=== PATIENT | female | born 1945 | race Caucasian/White ===

== ENCOUNTER 2017-08-11 12:08 | Emergency (ER) | payer OTHER ==
[~2017-08-11] VITALS: Ht 149.9 cm; Wt 59.0 kg
[2017-08-11 13:28] LABS: Basophils # (auto) 0 uL; Basophils % (auto) 0.5 % (0.0-2.0); Eosinophils # (auto) 0.1 uL; Eosinophils % (auto) 0.7 % (0.0-7.0); Hematocrit 38.5 % (36.0-46.0); Hemoglobin 12.5 g/dL (12.2-16.2); Lymphocytes # (auto) 0.8 uL; Mean Corpuscular Hemoglobin 29.8 pg (28.0-32.0); Mean Corpuscular Hgb Conc. 32.4 g/dL (32.0-36.0); Mean Corpuscular Volume 91.7 fL (80.0-100.0); Monocytes # (auto) 0.7 uL; Monocytes % (auto) 9.2 % (0.0-12.0); Neutrophils # (auto) 5.9 uL; Neutrophils % (auto) 78.6 % (37.0-80.0); Platelet Count (auto) 233 10^3/uL (140-450); Red Cell Distribution Width 13.5 % (11.8-14.3); White Blood Cell 7.5 10^3/uL (4.4-10.8)
[2017-08-11 13:41] LABS: Alanine Aminotransferase 18 U/L (13-56); Albumin 3.4 g/dL (3.4-5.0); Alkaline Phosphatase 90 U/L (45-117); Anion Gap 6 (5-15); Aspartate Aminotransferase 20 U/L (15-37); BUN/Creatinine Ratio 24.4; Bilirubin, Total 0.3 mg/dL (0.2-1.0); Blood Urea Nitrogen 11 mg/dL (7-18); Calcium 8.6 mg/dL (8.5-10.1); Carbon Dioxide 35 mmol/L (21-32); Chloride 96 mmol/L (98-107); GFR African American 178 mL/min; GFR Non-African American 147 mL/min; Glucose 107 mg/dL (74-106); Magnesium 2.4 mg/dL (1.6-2.6); Sodium 137 mmol/L (136-145); Total Protein 6.6 g/dL (6.4-8.2)
[2017-08-11 14:10] VITALS: BP 152/86
== END 2017-08-11 15:10 | disposition home or self-care (01) ==
LOC: ER 12:08
DX: S01.81XA Laceration without foreign body of other part of head, initial encounter (principal); S61.512A Laceration without foreign body of left wrist, initial encounter; W01.0XXA Fall on same level from slipping, tripping and stumbling without subsequent striking against object, initial encounter; Y93.89 Activity, other specified; Y92.89 Other specified places as the place of occurrence of the external cause; Y99.8 Other external cause status; J44.9 Chronic obstructive pulmonary disease, unspecified
CPT/HCPCS: 12052; 36415; 70450; 71045; 80053; 83735; 84484; 85025; 93005

== ENCOUNTER 2017-08-21 18:23 | Inpatient (IN) | payer OTHER ==
[~2017-08-21] VITALS: Ht 142.2 cm; Wt 33.8 kg
[2017-08-21] MEDS ORDERED: ALBUTEROL SULF 2.5 MG/0.5ML(0.5%) NEB SOLN HHN ONE (18:45)
[2017-08-21] MEDS ORDERED: methylPREDNISolone SOD SUCC 125 MG/2 ML VL IV ONE (18:45)
[2017-08-21] MEDS ORDERED: IPRATROPIUM BROM 0.5 MG/2.5ML INH SOL HHN ONE (18:45)
[2017-08-21] MEDS ORDERED: ONDANSETRON HCL 4 MG/2 ML VIAL IV ONE (19:00)
[2017-08-21] MEDS ORDERED: cefTRIAXone 1GM/10ml IVPUSH 10 ML IV ONE (19:00)
[2017-08-21 19:41] LABS: Basophils # (auto) 0 uL; Basophils % (auto) 0.1 % (0.0-2.0); Eosinophils # (auto) 0 uL; Hematocrit 43.1 % (36.0-46.0); Hemoglobin 13.9 g/dL (12.2-16.2); Lymphocytes # (auto) 0.5 uL; Lymphocytes % (auto) 7.8 % (10.0-50.0); Mean Corpuscular Hgb Conc. 32.4 g/dL (32.0-36.0); Mean Corpuscular Volume 92.7 fL (80.0-100.0); Monocytes # (auto) 0.7 uL; Monocytes % (auto) 12.1 % (0.0-12.0); Neutrophils # (auto) 4.6 uL; Platelet Count (auto) 298 10^3/uL (140-450); Red Blood Cells 4.65 10^6/uL (4.0-5.20); Red Cell Distribution Width 13.8 % (11.8-14.3); White Blood Cell 5.8 10^3/uL (4.4-10.8)
[2017-08-21 19:57] LABS: Lactic Acid w/Reflex 3.4 mmol/L (0.4-2.0)
[2017-08-21 20:08] LABS: Albumin 3.3 g/dL (3.4-5.0); BUN/Creatinine Ratio 50.5; Bilirubin, Total 0.8 mg/dL (0.2-1.0); Calcium 8.1 mg/dL (8.5-10.1); Magnesium 2.5 mg/dL (1.6-2.6); Potassium 4.3 mmol/L (3.5-5.1); Total Protein 6.1 g/dL (6.4-8.2)
[2017-08-21] MEDS ORDERED: PANTOPRAZOLE 40 MG/10 ML VIAL IV ONE (20:45)
[2017-08-21] MEDS ORDERED: SODIUM CHLORIDE 0.9% 1,000 ML IV ONE (20:45)
[2017-08-21] MEDS ORDERED: TEMAZEPAM 15 MG CAP PO PRN (20:45)
[2017-08-21] MEDS ORDERED: SODIUM CHLORIDE 0.9% 1,000 ML IV SCH (20:45)
[2017-08-21] MEDS ORDERED: HYDROcodone-ACET 5/325MG TAB PO PRN (20:45)
[2017-08-21] MEDS ORDERED: ACETAMINOPHEN 325 MG TAB PO PRN (20:45)
[2017-08-21] MEDS ORDERED: MORPHINE SULFATE 10 MG/ML INJ 1ML SDV IV PRN (20:45)
[2017-08-21] MEDS ORDERED: NITROGLYCERIN 0.4 MG SL TAB SL PRN (20:45)
[2017-08-21 21:00] LABS: Amylase 59 U/L (25-115); Lipase 39 U/L (73-393)
[2017-08-21] MEDS ORDERED: ENOXAPARIN SOD 40 MG/0.4 ML SYRINGE SC SCH (21:26)
[2017-08-21] MEDS ORDERED: LORazepam 2MG/ML-1ML VIAL IV ONE (22:15)
[2017-08-21] MEDS: ONDANSETRON HCL 4 MG/2 ML VIAL IV PRN (22:45)
[2017-08-21 23:16] VITALS: BP 84/61
[2017-08-22] VITALS (84 sets, daily range): BP systolic 56–152; BP diastolic 32–144
[2017-08-22] MEDS ORDERED: SUCCINYLCHOLINE CHLORIDE 20 MG/ML 10ML VIAL IV ONE ×2 (04:41→06:30)
[2017-08-22] MEDS ORDERED: ETOMIDATE (2MG/ML) 20ML VIAL IV ONE ×2 (04:44→06:30)
[2017-08-22] MEDS ORDERED: NOREPINEPHRINE 8 MG/250ML KIT 250 ML IV ONE ×2 (04:54→11:05)
[2017-08-22] MEDS ORDERED: DEXTROSE 50% SYRINGE 50 ML IV ONE ×2 (04:55→05:11)
[2017-08-22] MEDS ORDERED: MIDAZOLAM DRIP 50 mg/50mL 50 ML IV ONE ×2 (05:04→09:08)
[2017-08-22] MEDS ORDERED: DEXTROSE (50%) 50ML SYRG IV ONE ×3 (05:15→06:30)
[2017-08-22] MEDS ORDERED: MIDAZOLAM DRIP 50 mg/50mL 50 ML IV SCH (05:20)
[2017-08-22] MEDS ORDERED: NOREPINEPHRINE 8 MG/250ML KIT 250 ML IV SCH (05:25)
[2017-08-22] MEDS ORDERED: ACETAMINOPHEN 650 mg PER 20 mL UD GT PRN (05:30)
[2017-08-22] MEDS ORDERED: methylPREDNISolone SOD SUCC 125 MG/2 ML VL IV SCH (06:00)
[2017-08-22] MEDS ORDERED: SODIUM CHLORIDE 0.9% 250 ML IV ONE (06:45)
[2017-08-22] MEDS ORDERED: SODIUM CHLORIDE 0.9% 1,000 ML IV SCH (06:45)
[2017-08-22 08:49] LABS: Basophils # (auto) 0 uL; Basophils % (auto) 0.1 % (0.0-2.0); Eosinophils # (auto) 0 uL; Eosinophils % (auto) 0.1 % (0.0-7.0); Hematocrit 33.1 % (36.0-46.0); Hemoglobin 10.6 g/dL (12.2-16.2); Lymphocytes # (auto) 0.2 uL; Lymphocytes % (auto) 5.1 % (10.0-50.0); Mean Corpuscular Hemoglobin 30.7 pg (28.0-32.0); Mean Corpuscular Volume 95.9 fL (80.0-100.0); Monocytes # (auto) 0.6 uL; Monocytes % (auto) 11.5 % (0.0-12.0); Neutrophils % (auto) 83.2 % (37.0-80.0); Nucleated Red Blood Cells % 0.1 %; Platelet Count (auto) 184 10^3/uL (140-450); Red Blood Cells 3.45 10^6/uL (4.0-5.20); Red Cell Distribution Width 14.6 % (11.8-14.3); White Blood Cell 4.8 10^3/uL (4.4-10.8)
[2017-08-22] MEDS ORDERED: PHENYLEPHRINE IV 250 ML IV ONE ×2 (08:50→15:30)
[2017-08-22] MEDS: PHENYLEPHRINE INJ 20 MG in SODIUM CHL 0.9% 250 ML IV SCH ×3 (09:00→23:13)
[2017-08-22 09:21] LABS: Albumin 1.9 g/dL (3.4-5.0); BUN/Creatinine Ratio 35.9; Bilirubin, Total 0.3 mg/dL (0.2-1.0); Calcium 6.1 mg/dL (8.5-10.1)
[2017-08-22] MEDS: ALBUMIN 25% 100 ML IV SCH ×2 (10:30→12:23)
[2017-08-22] MEDS ORDERED: ENOXAPARIN SOD 100 MG/1 ML SYRINGE SC ONE (10:45)
[2017-08-22] MEDS: PANTOPRAZOLE 40 MG/10 ML VIAL IV SCH (11:19)
[2017-08-22] MEDS: cefTRIAXone 1GM/10ml IVPUSH 10 ML IV SCH (11:19)
[2017-08-22] MEDS: POTASSIUM CHL 10% (20 MEQ/15ML) 15ml ORAL SOLN GT SCH ×2 (11:24→12:00)
[2017-08-22] MEDS: SODIUM BICARBONATE 50ML VIAL 50 ML in D5W/SOD CHL 0.45%/KCL 20MEQ 1,000 ML IV SCH ×2 (13:02→19:15)
[2017-08-22] MEDS: POTASSIUM CHL 20MEQ/50ML 50 ML IV SCH ×2 (13:06→17:17)
[2017-08-22 13:43] LABS: Urine Bacteria NONE SEEN /hpf (None Seen); Urine Hyaline Cast FEW /lpf (0 - 2); Urine Mucus FEW (None Seen); Urine Specific Gravity 1.025 (1.001-1.035); Urine WBC 3 /hpf (0 - 5)
[2017-08-22 13:44] LABS: Urine Blood 1+ /uL (Negative)
[2017-08-22 14:22] LABS: Creatinine, Urine 76 mg/dL (30.0-125.0); Sodium Urine 25 mmol/L (40-220)
[2017-08-22 14:39] LABS: INR 1.6 (0.9-1.15); Partial Thromboplastin Time 66.6 sec (22.64-33.71); Prothrombin Time 17.5 sec (9.37-12.3)
[2017-08-22] MEDS: NOREPINEPHRINE 8 MG/250ML KIT 250 ML IV SCH ×2 (16:00→20:00)
[2017-08-22] MEDS: methylPREDNISolone SOD SUCC 40 MG/ML VL IV SCH ×2 (17:17→22:00)
[2017-08-22] MEDS ORDERED: LIDOCAINE 1% HCL (LOCAL ANESTH.) INJ 20ML MDV ID ONE (21:00)
[2017-08-22] MEDS: MIDAZOLAM DRIP 50 mg/50mL 50 ML IV SCH (22:00)
[2017-08-22] MEDS: SODIUM CHLOR 0.9% PF (SALINE LOCK) 10ML VIAL IV SCH (22:00)
[2017-08-23] VITALS (102 sets, daily range): BP systolic 80–133; BP diastolic 23–79
[2017-08-23] MEDS: MIDAZOLAM DRIP 50 mg/50mL 50 ML IV SCH (00:45)
[2017-08-23] MEDS: NOREPINEPHRINE 8 MG/250ML KIT 250 ML IV SCH ×3 (01:19→15:52)
[2017-08-23] MEDS: SODIUM BICARBONATE 50ML VIAL 50 ML in D5W/SOD CHL 0.45%/KCL 20MEQ 1,000 ML IV SCH ×3 (01:19→23:00)
[2017-08-23 04:20] LABS: Hematocrit 33.2 % (36.0-46.0); Hemoglobin 11.1 g/dL (12.2-16.2); Mean Corpuscular Hemoglobin 30.5 pg (28.0-32.0); Mean Corpuscular Hgb Conc. 33.3 g/dL (32.0-36.0); Mean Corpuscular Volume 91.7 fL (80.0-100.0); Platelet Count (auto) 146 10^3/uL (140-450); Red Blood Cells 3.62 10^6/uL (4.0-5.20); Red Cell Distribution Width 14.2 % (11.8-14.3); White Blood Cell 4.4 10^3/uL (4.4-10.8)
[2017-08-23 04:26] LABS: Basophils % (manual) 0 (0.0-2.0); Blast Cells 0; Eosinophils % (manual) 0 (0-7); Promyelocytes % 0; Reactive Lymphocytes 0
[2017-08-23 04:40] LABS: Lactic Acid w/Reflex 3.8 mmol/L (0.4-2.0)
[2017-08-23 05:02] LABS: Band Neutrophils % (manual) 32; Lymphocytes % (manual) 12 (10.0-50.0); Metamyelocytes % 10; Monocytes % (manual) 15 (0-12); Myelocytes % 3
[2017-08-23 05:04] LABS: Potassium 4.4 mmol/L (3.5-5.1)
[2017-08-23 05:05] LABS: Albumin 2.8 g/dL (3.4-5.0); BUN/Creatinine Ratio 53.4; Bilirubin, Total 0.4 mg/dL (0.2-1.0); Calcium 6.4 mg/dL (8.5-10.1); Magnesium 1.9 mg/dL (1.6-2.6); Total Protein 4.8 g/dL (6.4-8.2)
[2017-08-23] MEDS: ALBUTEROL SULF 2.5 MG/0.5ML(0.5%) NEB SOLN NEB PRN ×2 (05:53→22:10)
[2017-08-23] MEDS: IPRATROPIUM BROM 0.5 MG/2.5ML INH SOL NEB PRN ×2 (05:53→22:10)
[2017-08-23] MEDS: methylPREDNISolone SOD SUCC 40 MG/ML VL IV SCH ×3 (06:00→23:00)
[2017-08-23] MEDS: cefTRIAXone 1GM/10ml IVPUSH 10 ML IV SCH (09:00)
[2017-08-23] MEDS: PHENYLEPHRINE INJ 20 MG in SODIUM CHL 0.9% 250 ML IV SCH ×2 (09:48→17:30)
[2017-08-23] MEDS: PANTOPRAZOLE 40 MG/10 ML VIAL IV SCH (10:13)
[2017-08-23] MEDS: SODIUM CHLOR 0.9% PF (SALINE LOCK) 10ML VIAL IV SCH ×2 (10:13→23:00)
[2017-08-23] MEDS: ENOXAPARIN SOD 100 MG/1 ML SYRINGE SC SCH (10:14)
[2017-08-24] VITALS (105 sets, daily range): BP systolic 96–131; BP diastolic 42–77
[2017-08-24] MEDS: PHENYLEPHRINE INJ 20 MG in SODIUM CHL 0.9% 250 ML IV SCH ×3 (02:28→14:03)
[2017-08-24 04:14] LABS: BUN/Creatinine Ratio 52.1; Calcium 7.3 mg/dL (8.5-10.1); Magnesium 1.9 mg/dL (1.6-2.6); Potassium 4.2 mmol/L (3.5-5.1)
[2017-08-24 04:16] LABS: Lactic Acid w/Reflex 3.1 mmol/L (0.4-2.0)
[2017-08-24 04:22] LABS: Hematocrit 31.9 % (36.0-46.0); Hemoglobin 10.7 g/dL (12.2-16.2); Mean Corpuscular Hemoglobin 30.4 pg (28.0-32.0); Mean Corpuscular Hgb Conc. 33.4 g/dL (32.0-36.0); Mean Corpuscular Volume 90.9 fL (80.0-100.0); Platelet Count (auto) 95 10^3/uL (140-450); Red Blood Cells 3.51 10^6/uL (4.0-5.20); Red Cell Distribution Width 14.8 % (11.8-14.3)
[2017-08-24 04:58] LABS: Basophils % (manual) 0 (0.0-2.0); Eosinophils % (manual) 0 (0-7); Metamyelocytes % 0
[2017-08-24 04:59] LABS: Blast Cells 0; Myelocytes % 0; Promyelocytes % 0; Reactive Lymphocytes 0
[2017-08-24] MEDS: methylPREDNISolone SOD SUCC 40 MG/ML VL IV SCH ×3 (05:17→21:48)
[2017-08-24] MEDS ORDERED: CYANOCOBALAMIN (B-12) 1000 MCG/1 ML VIAL SUBCUT ONE (07:00)
[2017-08-24] MEDS: SODIUM BICARBONATE 50ML VIAL 50 ML in D5W/SOD CHL 0.45%/KCL 20MEQ 1,000 ML IV SCH (08:00)
[2017-08-24] MEDS ORDERED: TPN PER PHARMACY 0 ML IV SCH (08:30)
[2017-08-24] MEDS: MAGNESIUM SULFATE 1GM/100ML 100 ML IV SCH ×2 (09:06→10:28)
[2017-08-24] MEDS: cefTRIAXone 1GM/10ml IVPUSH 10 ML IV SCH (09:07)
[2017-08-24] MEDS ORDERED: DEXTROSE (50%) 50ML SYRG IV SCH (09:30)
[2017-08-24 09:50] LABS: Albumin 2.2 g/dL (3.4-5.0); Phosphorus 1.4 mg/dL (2.5-4.90); Pre Albumin 5.1 mg/dL (20.0-40.0)
[2017-08-24 09:52] LABS: Albumin 2.2 g/dL (3.4-5.0); Bilirubin, Direct 0.1 mg/dL (0-0.2); Bilirubin, Total 0.3 mg/dL (0.2-1.0); Total Protein 4.5 g/dL (6.4-8.2)
[2017-08-24] MEDS: ENOXAPARIN SOD 100 MG/1 ML SYRINGE SC SCH (10:00)
[2017-08-24] MEDS ORDERED: POTASSIUM PHOSPHATE 22 MEQ in SODIUM CHL 0.9% 100 ML IV ONE (10:15)
[2017-08-24] MEDS ORDERED: TPN PER PHARMACY IV SCH ×24 (10:15→10:45)
[2017-08-24] MEDS ORDERED: ENOXAPARIN SOD 30 MG/0.3 ML SYRINGE ONE (10:21)
[2017-08-24] MEDS: PANTOPRAZOLE 40 MG/10 ML VIAL IV SCH (10:27)
[2017-08-24] MEDS: SODIUM CHLOR 0.9% PF (SALINE LOCK) 10ML VIAL IV SCH ×2 (10:28→21:48)
[2017-08-24] MEDS ORDERED: CALCIUM GLUC IV SCH ×32 (11:00)
[2017-08-24] MEDS ORDERED: [UNRECOGNIZED DRUG - OTHER] IV SCH ×8 (11:00)
[2017-08-24] MEDS ORDERED: POTASSIUM PHOSPHATE IV SCH ×32 (11:00)
[2017-08-24] MEDS ORDERED: [UNRECOGNIZED DRUG - OTHER] IV SCH ×8 (11:00)
[2017-08-24] MEDS ORDERED: [UNRECOGNIZED DRUG - OTHER] IV SCH ×8 (11:00)
[2017-08-24] MEDS ORDERED: [UNRECOGNIZED DRUG - OTHER] IV SCH ×8 (11:00)
[2017-08-24 11:02] LABS: Band Neutrophils % (manual) 8; Lymphocytes % (manual) 3 (10.0-50.0); Monocytes % (manual) 7 (0-12)
[2017-08-24] MEDS: MIDAZOLAM HCL 1MG/1ML-2 ML VIAL IV PRN ×2 (16:06→20:27)
[2017-08-24] MEDS: CALCIUM GLUC IV SCH ×8 (20:26)
[2017-08-24] MEDS: [UNRECOGNIZED DRUG - OTHER] IV SCH ×8 (20:26)
[2017-08-24] MEDS: POTASSIUM PHOSPHATE IV SCH ×8 (20:26)
[2017-08-24] MEDS: NOREPINEPHRINE 8 MG/250ML KIT 250 ML IV SCH (20:54)
[2017-08-24] MEDS: PROPOFOL 100 ML IV SCH (21:49)
[2017-08-25] VITALS (88 sets, daily range): BP systolic 82–151; BP diastolic 44–89
[2017-08-25] MEDS ORDERED: DEXTROSE (50%) 50ML SYRG IV SCH
[2017-08-25] MEDS: InsuLIN REG 1unit/0.01ml Soln (100units/ml) SC SCH ×4 (00:13→17:41)
[2017-08-25] MEDS: ACCU-CHEK COMFORT CURVE STRIP VI SCH ×4 (00:14→17:41)
[2017-08-25] MEDS: PHENYLEPHRINE INJ 20 MG in SODIUM CHL 0.9% 250 ML IV SCH ×2 (03:28→11:48)
[2017-08-25 04:55] LABS: Hemoglobin 9.9 g/dL (12.2-16.2); Mean Corpuscular Hemoglobin 30.8 pg (28.0-32.0); Mean Corpuscular Hgb Conc. 32.9 g/dL (32.0-36.0); White Blood Cell 6.7 10^3/uL (4.4-10.8)
[2017-08-25 04:57] LABS: Hematocrit 30.1 % (36.0-46.0); Mean Corpuscular Volume 93.8 fL (80.0-100.0); Red Blood Cells 3.21 10^6/uL (4.0-5.20); Red Cell Distribution Width 14.6 % (11.8-14.3)
[2017-08-25 05:00] LABS: Platelet Count (auto) 60 10^3/uL (140-450)
[2017-08-25 05:01] LABS: Basophils % (manual) 0 (0.0-2.0); Blast Cells 0; Eosinophils % (manual) 0 (0-7); Promyelocytes % 0; Reactive Lymphocytes 0
[2017-08-25 05:18] LABS: Albumin 1.9 g/dL (3.4-5.0); BUN/Creatinine Ratio 78.4; Bilirubin, Total 0.3 mg/dL (0.2-1.0); Calcium 6.9 mg/dL (8.5-10.1); Magnesium 2.9 mg/dL (1.6-2.6); Phosphorus 2.7 mg/dL (2.5-4.90); Potassium 4.9 mmol/L (3.5-5.1); Total Protein 4.1 g/dL (6.4-8.2)
[2017-08-25 05:49] LABS: Band Neutrophils % (manual) 6; Lymphocytes % (manual) 8 (10.0-50.0); Monocytes % (manual) 8 (0-12)
[2017-08-25 05:50] LABS: Metamyelocytes % 2; Myelocytes % 2
[2017-08-25] MEDS: methylPREDNISolone SOD SUCC 40 MG/ML VL IV SCH ×3 (06:02→20:50)
[2017-08-25] MEDS: ONDANSETRON HCL 4 MG/2 ML VIAL IV PRN (06:03)
[2017-08-25] MEDS: PANTOPRAZOLE 40 MG/10 ML VIAL IV SCH (10:13)
[2017-08-25] MEDS: SODIUM CHLOR 0.9% PF (SALINE LOCK) 10ML VIAL IV SCH ×2 (10:14→20:27)
[2017-08-25] MEDS: ENOXAPARIN SOD 100 MG/1 ML SYRINGE SC SCH (10:14)
[2017-08-25] MEDS: cefTRIAXone 1GM/10ml IVPUSH 10 ML IV SCH (10:14)
[2017-08-25] MEDS ORDERED: D5W/SOD CHL 0.45% 1,000 ML IV SCH (14:30)
[2017-08-25] MEDS: NOREPINEPHRINE 8 MG/250ML KIT 250 ML IV SCH (17:22)
[2017-08-25] MEDS: PROPOFOL 100 ML IV SCH (18:13)
[2017-08-25] MEDS ORDERED: TPN PER PHARMACY IV NR ×7 (20:00)
[2017-08-25] MEDS: [UNRECOGNIZED DRUG - OTHER] IV SCH ×8 (20:27)
[2017-08-25] MEDS: CALCIUM GLUC IV SCH ×8 (20:27)
[2017-08-25] MEDS: POTASSIUM PHOSPHATE IV SCH ×8 (20:27)
== END 2017-08-25 22:50 | disposition short-term general hospital (02) | DRG 208 ==
LOC: ER 18:23 → EDUNIT# 18:23 → EDBD 18:23 → TELE 18:24 → TELE-EAST 21:38 → ICU WEST 08-22 06:21
PROVIDERS: ADMIT Nurse Practitioner; ATTEND Family Medicine
PROC: 5A09457 Assistance with Respiratory Ventilation, 24-96 Consecutive Hours, Continuous Positive Airway Pressure (ICD-10-PCS; 2017-08-21)
PROC: 02HV33Z Insertion of Infusion Device into Superior Vena Cava, Percutaneous Approach (ICD-10-PCS; principal; 2017-08-22)
PROC: 5A1945Z Respiratory Ventilation, 24-96 Consecutive Hours (ICD-10-PCS; 2017-08-22)
PROC: 0BH17EZ Insertion of Endotracheal Airway into Trachea, Via Natural or Artificial Opening (ICD-10-PCS; 2017-08-22)
DX: J96.21 Acute and chronic respiratory failure with hypoxia (principal); N17.0 Acute kidney failure with tubular necrosis; E43 Unspecified severe protein-calorie malnutrition; E87.4 Mixed disorder of acid-base balance; E87.0 Hyperosmolality and hypernatremia; E86.0 Dehydration; J44.1 Chronic obstructive pulmonary disease with (acute) exacerbation; Z99.81 Dependence on supplemental oxygen; K56.7 Ileus, unspecified; E86.1 Hypovolemia; R64 Cachexia; Z68.1 Body mass index [BMI] 19.9 or less, adult; Z66 Do not resuscitate; J96.22 Acute and chronic respiratory failure with hypercapnia; N18.3 Chronic kidney disease, stage 3 (moderate); D64.9 Anemia, unspecified; E87.6 Hypokalemia; F17.210 Nicotine dependence, cigarettes, uncomplicated; I12.9 Hypertensive chronic kidney disease with stage 1 through stage 4 chronic kidney disease, or unspecified chronic kidney disease; F41.9 Anxiety disorder, unspecified
CPT/HCPCS: 36415; 36569; 36600; 71045; 74018; 74021; 74250; 76775; 80048; 80053; 80076; 81001; 82040; 82150; 82570; 82607; 82805; 82962; 83605; 83690; 83735; 83880; 84100; 84300; 84443; 84478; 84484; 85007; 85025; 85027; 85610; 85730; 87040; 87081; 87086; 93005; 93306; 94003; 94640; 94660; 96361; 96374; 96375; 99291; C9113; J0330; J1815; J2250; J2405; J2704